=== PATIENT | male | born 1985 | race Caucasian/White ===

== ENCOUNTER 2021-12-25 08:39 | Outpatient (CLI) | payer OTHER | END 2021-12-25 23:59 | disposition home or self-care (01) | LOC: RAD 08:39 | PROVIDERS: ATTEND Chiropractor | DX: M48.04 Spinal stenosis, thoracic region (principal); M41.86 Other forms of scoliosis, lumbar region; M25.78 Osteophyte, vertebrae; M43.8X5 Other specified deforming dorsopathies, thoracolumbar region; M51.35 Other intervertebral disc degeneration, thoracolumbar region | CPT/HCPCS: 72070; 72100 ==